=== PATIENT | female | born 1955 | race Caucasian/White ===

== ENCOUNTER → 2020-10-26 | Outpatient (CLI) | payer OTHER ==
[~2020-10-26] MED LIST: CAL MAG ZINC +1 EAC1 PO; COLACE 100MG C100 MG PO; FISH OIL 1,0001 EAC5 PO; GLUCOPHAGE1000 MG PO; HYDROCODON-ACE1 EAC4 PO; IRON325 M1 PO; MULTIVITAMINS1 EAC2 PO; NAPROSYN EC 50500 MG PO; VITAMIN D21250 MCG PO; ZESTRIL 40 MG T40 MG PO
[2020-10-26 11:21] LABS: HEMOGLOBIN 12.1 gm/dl (12.3-15.3); RED BLOOD COUNT 4.1 M/UL (4.00-5.10); WHITE BLOOD COUNT 5.7 K/UL (4.5-11.0)
== END ==
LOC: OPSV2 10:00
PROVIDERS: Obstetrics & Gynecology
DX: Z01.818 Encounter for other preprocedural examination (principal); R00.0 Tachycardia, unspecified; R94.31 Abnormal electrocardiogram [ECG] [EKG]
CPT/HCPCS: 36415; 71046; 80048; 85025; 93005

== ENCOUNTER 2020-10-28 07:51 | Day surgery (SDC) | payer MEDICARE ==
[~2020-10-28] VITALS: Ht 160 cm; Wt 76.8 kg
[2020-10-28] MEDS ORDERED: GLUCOPHAGE1000 MG PO (09:09)
[2020-10-28] MEDS ORDERED: VITAMIN D21250 MCG PO (09:10)
[2020-10-28] MEDS ORDERED: IRON325 M1 PO (09:10)
[2020-10-28] MEDS ORDERED: CAL MAG ZINC +1 EAC1 PO (09:11)
[2020-10-28] MEDS ORDERED: FISH OIL 1,0001 EAC5 PO (09:12)
[2020-10-28] MEDS ORDERED: MULTIVITAMINS1 EAC2 PO (09:12)
[2020-10-28] MEDS ORDERED: NAPROSYN EC 50500 MG PO (11:29)
[2020-10-28] MEDS ORDERED: HYDROCODON-ACE1 EAC4 PO (11:29)
[2020-10-28] MEDS ORDERED: COLACE 100MG C100 MG PO (11:29)
[2020-10-28] MEDS ORDERED: ZESTRIL 40 MG T40 MG PO (17:01)
[2020-10-29 05:32] LABS: HEMOGLOBIN 9.3 gm/dl (12.3-15.3)
[2020-10-29 08:58] LABS: HEMOGLOBIN 9.8 gm/dl (12.3-15.3)
--- NOTE | 2020-10-29 11:54 | NUR ---
INSTRUCTED ON FOLLOW UP APPOINTMENT, STOPPED MEDS AND NEW MEDS SENT TO PHARMACY. VERBALIZED UNDERSTNDING. ELIEZER VAN R.N.
== END 2020-10-29 12:50 | disposition home or self-care (01) ==
LOC: OR 07:51 → M/S 12:23 → OR 14:00
PROVIDERS: Obstetrics & Gynecology
PROC: 0JQC0ZZ Repair Pelvic Region Subcutaneous Tissue and Fascia, Open Approach (ICD-10-PCS; 2020-10-28)
PROC: 0UUG0JZ Supplement Vagina with Synthetic Substitute, Open Approach (ICD-10-PCS; 2020-10-28)
PROC: 0USG7ZZ Reposition Vagina, Via Natural or Artificial Opening (ICD-10-PCS; 2020-10-28)
PROC: 0JQC0ZZ Repair Pelvic Region Subcutaneous Tissue and Fascia, Open Approach (ICD-10-PCS; principal; 2020-10-28 09:15)
DX: N81.10 Cystocele, unspecified (principal); N81.6 Rectocele; N81.82 Incompetence or weakening of pubocervical tissue; N39.3 Stress incontinence (female) (male); K46.9 Unspecified abdominal hernia without obstruction or gangrene; E11.9 Type 2 diabetes mellitus without complications; I10 Essential (primary) hypertension; D64.9 Anemia, unspecified; Z79.84 Long term (current) use of oral hypoglycemic drugs; Z79.899 Other long term (current) drug therapy
CPT/HCPCS: 36415; 81001; 82962; 85014; 85018; C1769; C1771; J0690; J1100; J1885; J2001; J2405; J2704; J2795; J3010; J7030; J7120